=== PATIENT | male | born 1960 | race Caucasian/White ===

== ENCOUNTER → 2019-02-17 09:53 | Outpatient (POV) | payer MEDICARE, MEDICAID, SELFPAY ==
[2019-02-17 09:58] VITALS: BP 121/61; PULSE 86; RESP 18; O2SAT 98; BMI 25.8
--- NOTE | 2019-02-17 12:58 | HMH.PMCON ---
Assessment and Plan (1) Degenerative disc disease Current visit: Yes Status: Chronic Qualifiers: Spinal region: lumbar Qualified Code(s): M51.36 - Other intervertebral disc degeneration, lumbar region Category: Medical (2) Lumbar radiculopathy Current visit: Yes Status: Chronic Category: Medical Code(s): M54.16 - Radiculopathy, lumbar region - Assessment and plan all Dx Assessment and Plan for all problems:: Patient and I had a long and detailed discussion in regards to an epidural injection. He would like to move forward with this. He is on Plavix from his primary care physician we will see if he can be off of this prior to his injection. 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 I will see the patient back after his L4-L5 epidural steroid injection. Dr. Barfield has reviewed this note and agrees with this plan of care. This note was dictated using voice recognition software and may contain errors or omissions HPI - Data of Consult Consult date: 02/17/19 Requesting Physician: Teresa Scruggs APRN Primary Care Provider: Gian Moreno - Consult Narrative Reason for consult: Back pain, leg pain History of present illness: Mr. Calles is a 58 year old male who presents today for consultation in regards to his low back pain. Patient has had back pain for quite some time. He states that he is to take OxyContin to help relieve it. He also took multiple other drugs both legal and illegal and consumed half a gallon of whiskey every 2 days. He states he is no longer consuming alcohol or drugs. However he is still having quite a bit of pain. Patient is tried and failed physical therapy, anti-inflammatories. Patient was seen by a back doctor in the past who stated he would probably benefit from epidural injections. Patient MRI shows multilevel degeneration along with facet degeneration and bulging disc. He states most of his pain is in his back rating down his bilateral legs. He rates his pain a 5 out of 10 CC: Teresa Scruggs APRN [facility] History I have reviewed the patient's past medical history: Yes Medical History: Reports:: Congestive Heart Failure, Hyperlipidemia, Hypertension, Internal Pacemaker, Myocardial Infarction *Have you ever received a pneumonia vaccine?: No *Have you received a flu vaccine this season?: No Laterality Cases: Left: Arthroscopy Hip Other Surgeries: Yes: Pacemaker Amputation: No Fractures: No - *Social History Smoking Status: Former smoker Alcohol Intake: former Alcohol Intake Frequency:: other Last Used Substance: unknown *Occupational Status:: other Housing: house Household Members: other *Travel in the last 8 weeks: None Family Hx:: Unable to obtain Review of Systems - Review of Systems ROS General: no recent weight change, no fever, no sleep disturbances Respiratory: no cough, no shortness of air, no recurring pulmonary infections Cardiovascular/Peripheral Vascular: No chest pain, No palpitations, no edema, no shortness of breath. Gastrointestinal: no incontinence, normal bowel movements reported Genitourinary: no incontinence Musculoskeletal: Back pain, leg pain Psychiatric: normal mood/ affect Neurological: [denies weakness in extremities], [denies balance issues] Meds Allergies Allergy/AdvReac Type Severity Reaction Status Date / Time codeine [CODEINE] Allergy Unknown I-ITCHING Unverified 06/11/17 14:32 Objective Vital signs: Pulse Resp BP Pulse Ox 86 18 121/61 98 02/17/19 09:58 02/17/19 09:58 02/17/19 09:58 02/17/19 09:58 Narrative: Physical Exam General: Alert and oriented x3, no acute distress, pleasant and cooperative, [on room air] Lungs: Resps E/U, Symmetrical chest expansion, Eyes: PERRL Musculoskeletal: Flexion and extension of lumbar spine somewhat guarded secondary to pain, deep tendon reflexes normal, strength in upper and lower extremities [5/5], [abnormal gait noted] Neur
--- NOTE | 2019-02-17 13:06 | P.CONS_ITS ---
Assessment and Plan (1) Degenerative disc disease Current visit: Yes Status: Chronic Qualifiers: Spinal region: lumbar Qualified Code(s): M51.36 - Other intervertebral disc degeneration, lumbar region Category: Medical (2) Lumbar radiculopathy Current visit: Yes Status: Chronic Category: Medical Code(s): M54.16 - Radiculopathy, lumbar region - Assessment and plan all Dx Assessment and Plan for all problems:: Patient and I had a long and detailed discussion in regards to an epidural injection. He would like to move forward with this. He is on Plavix from his primary care physician we will see if he can be off of this prior to his injection. 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 I will see the patient back after his L4-L5 epidural steroid injection. Dr. Barfield has reviewed this note and agrees with this plan of care. This note was dictated using voice recognition software and may contain errors or omissions HPI - Data of Consult Consult date: 02/17/19 Requesting Physician: Teresa Scruggs APRN Primary Care Provider: Gian Moreno - Consult Narrative Reason for consult: Back pain, leg pain History of present illness: Mr. Calles is a 58 year old male who presents today for consultation in regards to his low back pain. Patient has had back pain for quite some time. He states that he is to take OxyContin to help relieve it. He also took multiple other drugs both legal and illegal and consumed half a gallon of whiskey every 2 days. He states he is no longer consuming alcohol or drugs. However he is still having quite a bit of pain. Patient is tried and failed physical therapy, anti- inflammatories. Patient was seen by a back doctor in the past who stated he would probably benefit from epidural injections. Patient MRI shows multilevel degeneration along with facet degeneration and bulging disc. He states most of his pain is in his back rating down his bilateral legs. He rates his pain a 5 out of 10 CC: Teresa Scruggs APRN [facility] History I have reviewed the patient's past medical history: Yes Medical History: Reports:: Congestive Heart Failure, Hyperlipidemia, Hypertension, Internal Pacemaker, Myocardial Infarction *Have you ever received a pneumonia vaccine?: No *Have you received a flu vaccine this season?: No Laterality Cases: Left: Arthroscopy Hip Other Surgeries: Yes: Pacemaker Amputation: No Fractures: No - *Social History Smoking Status: Former smoker Alcohol Intake: former Alcohol Intake Frequency:: other Last Used Substance: unknown *Occupational Status:: other Housing: house Household Members: other *Travel in the last 8 weeks: None Family Hx:: Unable to obtain Review of Systems - Review of Systems ROS General: no recent weight change, no fever, no sleep disturbances Respiratory: no cough, no shortness of air, no recurring pulmonary infections Cardiovascular/Peripheral Vascular: No chest pain, No palpitations, no edema, no shortness of breath. Gastrointestinal: no incontinence, normal bowel movements reported Genitourinary: no incontinence Musculoskeletal: Back pain, leg pain Psychiatric: normal mood/ affect Neurological: [denies weakness in extremities], [denies balance issues] Meds Allergies Allergy/AdvReac Type Severity Reaction Status Date / Time codeine [CODEINE] Allergy Unknown I-ITCHING Unverified 06/11/17 14:32 Objective Vital signs:
== END ==
PROVIDERS: PCP Pediatrics; Visit Provider Clinical Nurse Specialist Family Health
DX: M51.16 Intervertebral disc disorders with radiculopathy, lumbar region (principal)
CPT/HCPCS: 99202